=== PATIENT | female | born 1995 | race Caucasian/White ===

== ENCOUNTER 2023-04-21 12:10 | Emergency (ER) | payer SELFPAY ==
[2023-04-21 12:34] VITALS: BP 93/67; PULSE 86; RESP 14; TEMP 36.7; O2SAT 95; BMI 21.7
--- NOTE | 2023-04-21 13:17 | ED_ITS ---
HPI - Medical Clearance General Chief complaint: Medical Clearance Stated complaint: OTHER Time Seen by Provider: 04/21/23 12:50 Source: patient Mode of arrival: walk-in Limitations: no limitations and altered mental status History of Present Illness HPI Narrative: The patient is to us after she was requested to had medical clearance to go to a detox facility ( [facility] ) , the patient admits to using multiple drugs she is a bad historian and did not want to come to the ER She is denying any pain fever or chills she denies any injection site in her lower extremity but she did mentions that she had a history of injection in her upper extremity She denies any complaint at the moment Related Information Allergies Allergy/AdvReac Type Severity Reaction Status Date / Time iodine Allergy Intermediate Rash Verified 04/21/23 12:29 Penicillins Allergy Intermediate rash Verified 04/21/23 12:29 Review of Systems ROS Status of ROS 10 or more systems reviewed and unremarkable except as noted in history and below PFSH PFS Social History Smoking status: Current every day smoker Exam Narrative Exam Narrative: Nurses notes and vital signs reviewed and patient is not hypoxic. General: Well-appearing and in no apparent distress. Skin: Warm, dry, no pallor noted. No rash. Head: Normocephalic, atraumatic. Neck: Supple, non-tender. Eye: Pupils are equal, round and EOMI. No scleral icterus. Ears, Nose, Mouth, and Throat: TM are clear, no nasal mucosal hypertrophy. Oral mucosa is moist, no posterior oropharynx erythema, uvula is mid-line Cardiovascular: Regular Rate and Rhythm without murmur, gallop or rub. Respiratory: No accessory muscle use or respiratory distress. Lungs are clear to auscultation, no wheezing, rales or rhonchi Chest Wall: no tenderness Back: No midline thoracic or lumbar vertebral tenderness. No CVA tenderness Musculoskeletal: normal ROM, no calf or popliteal tenderness, no lower extremity edema/swelling patient have a scar previously healing wound on the left forearm GI: Abdomen is soft, non-distended. Normal bowel sounds. No masses appreciated. No tenderness to palpation. No rebound, guarding, or rigidity noted. Neurological: A&O x4. No cranial nerve dysfunction observed. No truncal ataxia. Moves all extremities. Sensation intact. Psychiatric: Cooperative and interactive. Normal mood and affect. Constitutional Vital Signs, click to edit/add: Last Vital Signs Temp 98.1 F 04/21/23 12:34 Pulse 86 04/21/23 12:34 Resp 14 04/21/23 12:34 BP 93/67 04/21/23 12:34 Pulse Ox 95 04/21/23 12:34 O2 Del Method Room Air 04/21/23 12:34 Course Vital Signs Vital signs: Vital Signs Temperature 98.1 F 04/21/23 12:34 Pulse Rate 86 04/21/23 12:34 Respiratory Rate 14 04/21/23 12:34 Blood Pressure 93/67 04/21/23 12:34 Pulse Oximetry 95 04/21/23 12:34 Oxygen Delivery Method Room Air 04/21/23 12:34 Temperature 98.1 F 04/21/23 12:34 Pulse Rate 86 04/21/23 12:34 Respiratory Rate 14 04/21/23 12:34 Blood Pressure 93/67 04/21/23 12:34 Pulse Oximetry 95 04/21/23 12:34 Oxygen Delivery Method Room Air 04/21/23 12:34 MDM - Medical Clearance MDM Narrative Medical decision making narrative: The patient blood work-up showed no acute pathology urine tested positive for Buprenex Right now the patient is medically cleared for detox And she will be discharged to go back to [facility] for detox Lab Data Labs: Lab Results 04/21/23 04/21/23 Range/Units 12:50 13:12 WBC 6.3 (4.0-11.0) 10^3/uL RBC 3.48 L (4.20-5.40) 10^6/uL Hgb 10.7 L (12.0-16.0) g/dL Hct 33.2 L (36.0-48.0) % MCV 95.4 (81.0-99.0) fL MCH 30.7 (26.7-34.0) pg MCHC 32.2 (29.9-35.2) g/dL RDW 14.9 (11.0-15.0) % Plt Count 177 (150-450) 10^3/uL MPV 13.0 (9.5-13.5) fL Neut % (Auto) 22.0 L (43.0-75.0) % Lymph % (Auto) 56.6 (20.5-60.0) % Tompkins % (Auto) 17.6 H (1.7-12.0) % Eos % (Auto) 2.5 (0.9-7.0) % Baso % (Auto) 0.8 (0.2-2.0) % Neut # (Auto) 1.4 (1.4-6.5) 10^3/uL Lymph # (Auto) 3.6 (1.2-3.8) 10^3/uL Tompkins # (Auto) 1.1 H (0.3-0.8) 10^3/uL Eos # (Auto) 0.2 (0.0-0.7) 10^3/uL Baso # (Auto) 0.1 (0.0-0.1) 10^3/uL Abs Immat Gran (auto) 0.03 (0.00-0.03) 10^3/uL Imm/Tot Granulo (auto) 0.5 (0.0-0.5) % Sodium 139 (136-145) mmol/L Potassium 4.5 (3.5-5.1) mmol/L Chloride 104 (98-107) mmol/L Carbon Dioxide 27.2 (21.0-32.0) mmol/L Anion Gap 12.3 BUN 16.0 (7.0-18.0) mg/dL Creatinine 1.01 (0.55-1.02) mg/dL Est GFR ( Amer) >60 (>=60) Est GFR (Non-Af Amer) >60 (>=60) BUN/Creatinine Ratio 15.8 Glucose 104 (74-106) mg/dL Calcium 9.0 (8.5-10.1) mg/dL Total Bilirubin 0.3 (0.2-1.0) mg/dL AST 75 H (15-37) U/L ALT 86 H (14-59) U/L Alkaline Phosphatase 72 (46-116) U/L Total Protein 6.9 (6.4-8.2) g/dL Albumin 3.0 L (3.4-5.0) g/dL Globulin 3.9 g/dL Albumin/Globulin Ratio 0.8 Urine Opiates Screen Negative (NEGATIVE) Ur Buprenorphine Scrn Positive A (NEGATIVE) Ur Oxycodone Screen Negative (NEGATIVE) Urine Methadone Screen Negative (NEGATIVE) Ur Propoxyphene Screen Negative (NEGATIVE) Ur Barbiturates Screen Negative (NEGATIVE) U Tricyclic Antidepress Negative (NEGATIVE) Ur Phencyclidine Scrn Negative (NEGATIVE) Ur Amphetamines Screen Negative (NEGATIVE) U Methamphetamines Scrn Negative (NEGATIVE) U Benzodiazepines Scrn Negative (NEGATIVE) Urine Cocaine Screen Negative (NEGATIVE) U Cannabinoids Screen Negative (NEGATIVE) Ethanol Quant <3 mg/dL Discharge Plan Discharge Chief Complaint: Medical Clearance Clinical Impression: Encounter for medical clearance for patient hold Patient Disposition: Home, Self-Care Time of Disposition Decision: 13:45 Mode of Transportation: Private Vehicle Instructions: Narcotic Use Disorder (ED) Stand Alone Forms: Portal Instructions Referrals: Physician,Non-Staff, MD [Primary Care Provider] - 1 week
[2023-04-21 13:24] LABS: Basophils Absolute Auto 0.1 10^3/uL (0.0-0.1); Basophils Percent Auto 0.8 % (0.2-2.0); Eosinophils Absolute Auto 0.2 10^3/uL (0.0-0.7); Eosinophils Percent Auto 2.5 % (0.9-7.0); Hematocrit 33.2 % (36.0-48.0); Hemoglobin 10.7 g/dL (12.0-16.0); Immature Granulocytes Abs Auto 0.03 10^3/uL (0.00-0.03); Immature Granulocytes Pct Auto 0.5 % (0.0-0.5); Lymphocytes Absolute Auto 3.6 10^3/uL (1.2-3.8); Lymphocytes Percent Auto 56.6 % (20.5-60.0); Mean Corpuscular HGB Conc 32.2 g/dL (29.9-35.2); Mean Corpuscular Hemoglobin 30.7 pg (26.7-34.0); Mean Corpuscular Volume 95.4 fL (81.0-99.0); Monocytes Absolute Auto 1.1 10^3/uL (0.3-0.8); Monocytes Percent Auto 17.6 % (1.7-12.0); Neutrophils Absolute Auto 1.4 10^3/uL (1.4-6.5); Platelet Count 177 10^3/uL (150-450); Red Blood Count 3.48 10^6/uL (4.20-5.40); Red Cell Distribution Width 14.9 % (11.0-15.0); White Blood Count 6.3 10^3/uL (4.0-11.0)
[2023-04-21 13:32] LABS: Amphetamine Screen Urine NEGATIVE (NEGATIVE); Barbiturates Screen Urine NEGATIVE (NEGATIVE); Benzodiazepines Screen Urine NEGATIVE (NEGATIVE); Buprenorphine Screen Urine POSITIVE (NEGATIVE); Cannabinoid Screen Urine NEGATIVE (NEGATIVE); Cocaine Screen Urine NEGATIVE (NEGATIVE); Methadone Screen Urine NEGATIVE (NEGATIVE); Methamphetamines Screen Urine NEGATIVE (NEGATIVE); Opiate Screen Urine NEGATIVE (NEGATIVE); Oxycodone Screen Urine NEGATIVE (NEGATIVE); Phencyclidine Screen Urine NEGATIVE (NEGATIVE); Tricyclic Antidepressant Urine NEGATIVE (NEGATIVE)
[2023-04-21 13:38] LABS: Alanine Aminotransferase 86 U/L (14-59); Albumin Globulin Ratio 0.8; Alkaline Phosphatase 72 U/L (46-116); Anion Gap 12.3; Aspartate Amino Transferase 75 U/L (15-37); BUN Creatinine Ratio 15.8; Bilirubin Total 0.3 mg/dL (0.2-1.0); Carbon Dioxide 27.2 mmol/L (21.0-32.0); Chloride 104 mmol/L (98-107); Estimated GFR (African America >60 (>=60); Estimated GFR (Non-African Ame >60 (>=60); Globulin 3.9 g/dL; Glucose 104 mg/dL (74-106); Potassium 4.5 mmol/L (3.5-5.1); Sodium 139 mmol/L (136-145); Total Protein 6.9 g/dL (6.4-8.2)
[2023-04-21 13:41] LABS: Ethanol <3 mg/dL
[2023-04-21 13:53] LABS: HCG Qualitative Urine* NEGATIVE (NEGATIVE)
== END 2023-04-21 14:09 | disposition short-term general hospital (02) ==
PROVIDERS: Emergency Provider Emergency Medicine
DX: Z02.89 Encounter for other administrative examinations (principal); F17.210 Nicotine dependence, cigarettes, uncomplicated; F19.90 Other psychoactive substance use, unspecified, uncomplicated
CPT/HCPCS: 36415; 80053; 80307; 80320; 84703; 85025; 99284